=== PATIENT | female | born 1940 | race Caucasian/White ===

== ENCOUNTER 2019-12-29 13:02 | Outpatient (CLI) | payer MEDICARE, MEDICAID, SELFPAY | END 2019-12-29 13:03 | disposition home or self-care (01) | LOC: ANHAUDIO 13:04 | PROVIDERS: PCP Internal Medicine; Visit Provider Internal Medicine | DX: H90.3 Sensorineural hearing loss, bilateral (principal) | CPT/HCPCS: 92557; 92567 ==

== ENCOUNTER → 2020-12-13 10:52 | Outpatient (CLI) | payer MEDICARE, MEDICAID, SELFPAY ==
--- NOTE | ~2020-12-13 | CT_ITS ---
EXAMINATION: CT soft tissue neck w con DATE: 12/13/2020 11:28 INDICATION: Right neck mass. TECHNIQUE: Computed tomography (CT) of the neck was performed with 75 mL Omnipaque-350 intravenous co ntrast. Automated exposure control and iterative reconstruction technique were employed. The dose-harjit gth product was 362.70 mGy-cm. COMPARISON: None FINDINGS: There are likely changes of ocular lens replacement surgeries. There is mild mucosal thicke deborah in the paranasal sinuses. There is bilateral subpectoral lymphadenopathy. There is right submand ibular lymphadenopathy. There is right high, mid, and lower internal jugular chain lymphadenopathy. T here is mild low left internal jugular chain lymphadenopathy. For example, a right submandibular node measures 3.1 x 1.7 cm. There is plaque in the proximal internal carotid arteries with less than 50% stenosis relative to normal distal artery lumen diameters. There is a 7 mm nodule in right thyroid lo be, likely not clinically significant. There is severe cervical spondylosis. IMPRESSION: 1. Lymphadenopathy in the neck and chest suspicious for lymphoma. Ultrasound-guided core needle biops y of a right neck lymph node is recommended. Reviewed, dictated and finalized at location A. IMPRESSION: 1. Lymphadenopathy in the neck and chest suspicious for lymphoma. Ultrasound-gu ided core needle biopsy of a right neck lymph node is recommended.
[2020-12-13 11:09] LABS: Estimated Glomerular Filt Rate 54
== END ==
PROVIDERS: PCP Internal Medicine; Visit Provider Registered Nurse
DX: R59.0 Localized enlarged lymph nodes (principal)
CPT/HCPCS: 70491; Q9967

== ENCOUNTER 2021-03-15 10:05 | Outpatient (CLI) | payer MEDICARE, MEDICAID, SELFPAY | END 2021-03-15 10:06 | disposition home or self-care (01) | LOC: ANHAUDIO 10:06 | PROVIDERS: PCP Internal Medicine; Visit Provider Internal Medicine | DX: H91.93 Unspecified hearing loss, bilateral (principal) | CPT/HCPCS: 92557; 92567 ==

== ENCOUNTER 2021-04-23 12:07 | Outpatient (RCR) | payer MEDICARE, MEDICAID, SELFPAY | END 2021-04-23 23:59 | disposition home or self-care (01) | LOC: ANHAUDIO 12:07 | PROVIDERS: PCP Internal Medicine; Visit Provider Internal Medicine | DX: Z46.1 Encounter for fitting and adjustment of hearing aid (principal) | CPT/HCPCS: V5221; V5240 ==

== ENCOUNTER 2021-08-02 11:05 | Outpatient (RCR) | payer MEDICARE, MEDICAID, SELFPAY | END 2021-08-02 23:59 | disposition home or self-care (01) | LOC: ANHAUDIO 11:05 | PROVIDERS: PCP Internal Medicine; Referring Provider Internal Medicine; Visit Provider Internal Medicine | DX: Z46.1 Encounter for fitting and adjustment of hearing aid (principal) | CPT/HCPCS: 99199 ==

== ENCOUNTER → 2022-05-16 13:19 | Outpatient (CLI) | payer MEDICARE, MEDICAID, SELFPAY ==
--- NOTE | ~2022-05-16 | CT_ITS ---
EXAMINATION: CT sinus wo con DATE: 05/16/2022 13:35 INDICATION: Nasal congestion TECHNIQUE: Computed tomography (CT) of the paranasal sinuses was performed without intravenous contra st. The dose-length product (DLP) was 251.70 mGy-cm. Iterative reconstruction was used. COMPARISON: None FINDINGS: There is normal development and pneumatization of the paranasal sinuses. There is near comp lete opacification of the ethmoidal air cells, the left maxillary sinus, and the right sphenoid sinus . There is mild/moderate opacification of the right maxillary sinus. Mucosal thickening is noted in t he left sphenoid sinus and the frontal sinuses. There is near complete bilateral opacification of the mastoid air cells. There are 3 mm leftward deviation of the nasal septum. The bilateral ostiomeatal complexes are occluded. Changes in the globes are likely from ocular lens surgery. There are calcifie d left parietal scalp soft tissue masses measuring up to 2.2 cm, likely benign. Apical abscesses are noted within maxillary teeth on the right. IMPRESSION: 1. Pansinusitis, worst in the ethmoidal air cells, left maxillary sinus, and right sphenoid sinus. 2. Bilateral mastoid effusions. 3. Dental disease. Reviewed, dictated and finalized at location L. CIAN/ILLUSIONIST IMPRESSION: 1. Pansinusitis, worst in the ethmoidal air cells, left maxillary sinus, and ri ght sphenoid sinus. 2. Bilateral mastoid effusions. 3. Dental disease.
== END ==
PROVIDERS: PCP Internal Medicine; Visit Provider Internal Medicine
DX: R09.81 Nasal congestion (principal)
CPT/HCPCS: 70486

== ENCOUNTER 2022-06-07 14:07 | Outpatient (CLI) | payer MEDICARE, MEDICAID, SELFPAY | END 2022-06-07 14:08 | disposition home or self-care (01) | LOC: ANHAUDIO 14:08 | PROVIDERS: PCP Internal Medicine; Visit Provider Internal Medicine | DX: H90.3 Sensorineural hearing loss, bilateral (principal) | CPT/HCPCS: 92567 ==